=== PATIENT | male | born 1980 | race African-American/Black ===

== ENCOUNTER 2023-10-29 11:12 | Emergency (ER) | payer MEDICAID ==
[~2023-10-29] VITALS: Ht 175.3 cm; Wt 59.0 kg
[2023-10-29] MEDS ORDERED: IBUP-1955 PO (12:47)
[2023-10-29] MEDS ORDERED: LIDO30AD10 TP (12:47)
[2023-10-29] MEDS ORDERED: CYCL5TAB PO (12:47)
[2023-10-29] MEDS ORDERED: LIDOCAINE 5% (PATCH) 1 EA PATCH TP ONE (12:49)
[2023-10-29] MEDS: KETOROLAC TROMETHAMINE 15 MG/ML VIAL IM ONE (12:53)
[2023-10-29] MEDS: LIDOCAINE 5% (PATCH) 1 EA PATCH TP STA (12:54)
[2023-10-29 13:10] VITALS: BP 125/71; TEMP 98.2; O2SAT 98
== END 2023-10-29 13:10 | disposition home or self-care (01) ==
LOC: ER 11:16
DX: S29.012A Strain of muscle and tendon of back wall of thorax, initial encounter (principal); V43.52XA Car driver injured in collision with other type car in traffic accident, initial encounter; Y93.89 Activity, other specified; Y92.488 Other paved roadways as the place of occurrence of the external cause; Y99.8 Other external cause status
CPT/HCPCS: 99283; 96372; J1885